=== PATIENT | female | born 1940 | race Caucasian/White ===

== ENCOUNTER 2018-09-28 14:45 | Day surgery (SDC) | payer MEDICARE, OTHER ==
[~2018-09-28] VITALS: Ht 162.6 cm; Wt 50.9 kg
[2018-09-28] VITALS (16 sets, daily range): BP systolic 120–147; BP diastolic 55–68; PULSE 62–86; RESP 16–47; Ht 162.6 cm; Wt 50.9 kg
[~2018-09-28 14:45] MED LIST: CEFAZOLIN 1 GM INJ ONE; LIDOCAINE 2% (SDV) 5 ML INJ ONE; PROPOFOL 200 MG INJ ONE
[2018-09-28] MEDS ORDERED: CEFAZOLIN 2 GM/50 ML (PMX) 50 ML IVPB ONE (16:00)
--- NOTE | 2018-09-28 16:28 | PREAC ---
Date/Time of Note Date/Time of Note DATE: 09/28/18 TIME: 16:27 Anesthesia Eval and Record Evaluation Time Pre-Procedure Interview DATE: 09/28/18 TIME: 16:27 Age 78 Sex female NPO: 8 hrs Preoperative diagnosis right foot osteomyelitis Planned procedure RIGHT FOOT 3RD METATARSAL RESECTION Past Medical History Past Medical History: Includes Cardio: Dyslipidemia Neuro: Other (TIA) Musculoskeletal: Rheumatoid arthritis Surgery & Anesthesia Issues No known issue Meds Anticoagulation: No Beta Idalmis within 24 hr: No Reason Beta Idalmis not given: Pt. not on B-Idalmis Current Medications Cefazolin Sodium/ Dextrose 50 ml @ 100 mls/hr PRE-OP ONCE IVPB ; Start 09/28/18 at 16:00; Stop 09/28/18 at 16:29 Meds reviewed: Yes Allergies Coded Allergies: No Known Allergy (Unverified , 09/27/18) Allergies Reviewed: Yes Labs/Studies Labs Reviewed: Reviewed by anesthesiologist test: N/A Studies: ECG, CXR Pre-procedure Exam Last vitals Vital Signs Date Temp Pulse Resp B/P (MAP) Pulse Ox O2 O2 Flow FiO2 Time Delivery Rate 09/28/18 99.7 80 16 132/62 99 Room Air 15:46 (85) Airway: Adequate mouth opening Mallampati: Mallampati II Teeth: Normal Lung: Normal Heart: Normal ASA Physical Status ASA physical status: 3 Emergency: None Pre-operative Attestations Prior to commencing anesthesia and surgery, the patient was re-evaluated, there was verification of: *The patient's identity *The results of appropriate recent lab work and preoperative vital signs *The above evaluation not changing prior to induction *Anesthetic plan, risk benefits, alternative and complications discussed with patient/family; questions answered; patient/family understands, accepts and wishes to proceed. RICARDO SALAZAR Sep 28, 2018 16:28
--- NOTE | 2018-09-28 16:39 | HPN ---
Date/Time of Note Date/Time of Note DATE: 09/28/18 TIME: 16:39 Interval H&P Admission Note Pt. seen H&P reviewed: No system changes ROWENA MITTAL DPM Sep 28, 2018 16:39
[2018-09-28] MEDS ORDERED: MIDAZOLAM 1 MG/ML 2 ML INJ ONE (16:40)
[2018-09-28] MEDS ORDERED: FENTAnyl 50 MCG/ML VIAL ONE (16:40)
[2018-09-28] MEDS ORDERED: BUPIVACAINE 0.5% (SDV) 30 ML INJ ONE (16:47)
[2018-09-28] MEDS ORDERED: POLYMYXIN/BACITRACIN 1L IRRIG ONE (16:52)
[2018-09-28] MEDS ORDERED: LABETALOL HCL 20MG INJ IV PRN (17:00)
[2018-09-28] MEDS ORDERED: hydrALAzine 20 MG INJ IV PRN (17:00)
[2018-09-28] MEDS ORDERED: ONDANSETRON 4 MG INJ IV PRN (17:00)
[2018-09-28] MEDS ORDERED: HYDROmorphONE 1 MG/5 ML IV SYRINGE IV PRN ×2 (17:00)
[2018-09-28] MEDS ORDERED: FENTAnyl 50 MCG/ML VIAL IV PRN ×2 (17:00)
[2018-09-28] MEDS ORDERED: METOCLOPRAMIDE 10 MG INJ IV PRN (17:00)
[2018-09-28] MEDS ORDERED: LIDOCAINE 1% (MPF) 30 ML INJ ONE (17:24)
--- NOTE | 2018-09-28 18:08 | PAC ---
Date/Time of Note Date/Time of Note DATE: 09/28/18 TIME: 18:07 Post-Anesthesia Notes Post-Anesthesia Note Last documented vital signs Vital Signs Date Temp Pulse Resp B/P (MAP) Pulse Ox O2 O2 Flow FiO2 Time Delivery Rate 09/28/18 99.7 80 16 132/62 99 Room Air 15:46 (85) Activity: WNL Respiratory function: WNL Cardiovascular function: WNL Mental status: Baseline Pain reasonably controlled: Yes Hydration appropriate: Yes Nausea/Vomiting absent: Yes RICARDO SALAZAR Sep 28, 2018 18:07
--- NOTE | 2018-09-28 18:13 | SIPON ---
Date/Time of Note Date/Time of Note DATE: 09/28/18 TIME: 18:07 Operative Report Preoperative Diagnosis Chronic wound, right foot 1.2 x 1.0 x 0.4 cm Rheumatoid arthritis Osteomyelitis, third digit, right foot Postoperative Diagnosis Chronic wound, right foot Rheumatoid arthritis Osteomyelitis, right third digit Operation/Procedure Performed Bilobed skin rotation flap, right foot Third metatarsal head resection, right foot Surgeon see signature line marketing communications assistant Maria Ines Wong D.P.MJeanette Anesthesia: MAC (With local anesthetic to right foot) Estimated blood loss: 0 - 10 ml's Transfusion Required none Specimen Third metatarsal, right foot to pathology Right foot wound to microbiology Grafts/Implants none Complications none MARIA INES WONG DPM Sep 28, 2018 18:13
--- NOTE | 2018-09-28 19:02 | OPR ---
DATE OF OPERATION: 09/28/2018 SURGEON: Kang Lopez DPM NETWORK ENGINEERING ADVISOR: Maria Ines Wong DPM PREOPERATIVE DIAGNOSES: 1. Chronic right foot ulceration. 2. Osteomyelitis, right third toe. 3. Rheumatoid arthritis. POSTOPERATIVE DIAGNOSES: 1. Chronic right foot ulceration. 2. Osteomyelitis, right third toe. 3. Rheumatoid arthritis. OPERATION PERFORMED: 1. Right foot 3rd metatarsal head resection. 2. Bilobed rotation skin flap. PATHOLOGY: Bone pathology and bone culture from third metatarsal. ANESTHESIA: MAC with local. HEMOSTASIS: Compression. ESTIMATED BLOOD LOSS: 15 to 20 mL. MATERIALS: 4-0 Prolene. COMPLICATIONS: None. INDICATION FOR PROCEDURE: A 78-year-old female with rheumatoid arthritis, chronic ulceration with un derlying osteomyelitis of the third toe. Has skin fat pad atrophy with pain to the plantar right aleyda t. Discussed planned procedure, risks, benefits, potential complications. The patient has been medi alejo optimized and cleared for surgery. DESCRIPTION OF PROCEDURE: Foot was marked, brought into the operating room and placed in the supine position, received preoperative antibiotics, was prepped with chlorhexidine and draped in usual steri le fashion. At this time, the plantar ulceration was excised full thickness measuring 1.2 cm in diam eter. This revealed a rupture of the plantar plates. The incision was extended distally as a unilob ed flap. With blunt dissection, the subcutaneous tissue was freed. This allowed for exposure of the metatarsal head. Using the TPS, the metatarsal head was transected and excised. The wound was irri gated with saline. At this time, the flap was rotated approximately 30 to 40 degrees and due to sign ificant tension, a second unilobe was created proximal and the skin was incised and the flap was blun tly dissected and then rotated approximately 20 to 30 degrees and closed with 4-0 Prolene. The donor site of the flap had been closed primarily due to redundant skin. Sample from the bone was sent for culture and also pathology. The patient was then placed in a soft dressing with a posterior splint and transferred to PACU with vital signs stable. Dictated By: KANG SKINNER/GARRETT Conf#: [id number] DID#: [id number] CC: MARIA INES WONG DPM;*EndCC*
== END 2018-09-28 19:48 | disposition home or self-care (01) ==
LOC: SDS 14:45
PROVIDERS: ATTEND Podiatrist Foot & Ankle Surgery
DX: L97.519 Non-pressure chronic ulcer of other part of right foot with unspecified severity (principal); M86.671 Other chronic osteomyelitis, right ankle and foot; M06.9 Rheumatoid arthritis, unspecified; Z86.73 Personal history of transient ischemic attack (TIA), and cerebral infarction without residual deficits
CPT/HCPCS: 28104; 87070; 87102; 87116; 88304; J0690; J2250; J3010